=== PATIENT | female | born 1985 | race Caucasian/White ===

== ENCOUNTER 2024-05-14 11:08 | Emergency (ER) | payer BC, SELFPAY ==
[2024-05-14 11:22] VITALS: BP 131/85; PULSE 79; RESP 16; TEMP 36.8; O2SAT 99; BMI 27.4
--- NOTE | 2024-05-14 11:58 | ED_ITS ---
HPI - Skin/Abscess/Foreign Bdy General Chief complaint: Skin/Abscess/Foreign Body Stated complaint: Right Acute breast pain , rash Time Seen by Provider: 05/14/24 11:43 Source: patient Mode of arrival: Ambulatory History of Present Illness HPI narrative: Patient is a 39-year-old female. History of fibrocystic breast disease. Not on control. Has had multiple ultrasounds and mammograms but has never had any breast biopsies he was here for evaluation of an increase in pain to her right breast. A new lump in her right breast and some skin changes over the area. No fevers. No nipple discharge. Has been taking Tylenol and ibuprofen. It was painful to lay on her right side last evening. Related Data Previous Rx's Medication Instructions Recorded albuterol sulfate 90 mcg/actuation 2 puff inhalation Q4-6H PRN 05/03/23 aerosol inhaler shortness of breath or wheezing #6.7 grams fluticasone propionate 44 2 puff inhalation BID #10.6 grams 05/03/23 mcg/actuation HFA aerosol inhaler (Flovent HFA) prednisone 10 mg tablets in a dose See Rx Instructions PO PER PKG DIR 05/03/23 pack #21 ea Allergies Allergy/AdvReac Type Severity Reaction Status Date / Time almond Allergy Verified 05/14/24 11:30 bee venom protein (honey bee) Allergy Verified 05/14/24 11:30 erythromycin base Allergy Verified 05/14/24 11:30 hazelnut Allergy Verified 05/14/24 11:30 amoxicillin AdvReac Mild Verified 05/03/23 09:10 Penicillins AdvReac Mild Verified 05/03/23 09:10 Review of Systems Review of Systems Narrative: See HPI Patient History Social History Smoking Status: Unknown if ever smoked Smoking Status: Unknown if ever smoked Exam Initial Vital Signs Initial Vital Signs: Vital Signs Temperature 98.2 F 05/14/24 11:22 Pulse Rate 79 05/14/24 11:22 Respiratory Rate 16 05/14/24 11:22 Blood Pressure 131/85 05/14/24 11:22 Pulse Oximetry 99 05/14/24 11:22 Oxygen Delivery Method Room Air 05/14/24 11:22 Chest Other: Definite fibrocystic changes to the right breast. There is a 1 cm discrete mass at approximately the 4 o'clock position right at the border of the areola of the right breast. No skin changes over this area. No lymph nodes felt in the right armpit. Skin Other: Small area of redness at the 1 o'clock position along the areola. The redness is more of petechiae and not so much cellulitis. Not warm to the touch. No drainage. 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 Right breast was examined. There were small areas of skin changes over the right breast but it was more petechiae parents and not cellulitis. No nipple discharge. No lymphadenopathy. She is obvious fibrocystic breast disease. There was no indication for ultrasound/mammogram or other advanced imaging here in the emergency department today. We discussed the new mass that was felt and how she should watch this over the next several weeks and follow up with her primary doctor if anything changes. She was given return precautions and follow-up instructions. She expressed understanding and agreement. Discharge Plan Departure Patient Disposition: Home Clinical Impression: Breast tenderness in female Activity Restrictions/Additional Instructions: There was no indication of any infection today. You do need to continue to watch that 1 discrete area of mass that we noticed here in the ER. 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 If you start to develop fevers or increasing redness over the right breast then please return to the emergency department for further evaluation. Prescriptions: No Action fluticasone propionate [Flovent HFA] 44 mcg/actuation HFA aerosol inhaler 2 puff inhalation BID Qty: 10.6 0RF Rx Instructions: administer with spacer albuterol sulfate 90 mcg/actuation HFA aerosol inhaler 2 puff inhalation Q4-6H PRN (Reason: shortness of breath or wheezing) Qty: 6.7 0RF prednisone 10 mg tablets,dose pack See Rx Instructions PO PER PKG DIR Qty: 21 0RF Rx Instructions: PO PER PKG DIR Referrals: Miscellaneous,Doctor, [Primary Care Provider] - Stand Alone Forms: Patient Portal/API
== END 2024-05-14 12:10 | disposition home or self-care (01) ==
PROVIDERS: Emergency Provider Emergency Medicine
DX: N64.4 Mastodynia (principal)
CPT/HCPCS: 99281